=== PATIENT | male | born 1975 | race Two or more races ===

== ENCOUNTER 2017-02-12 18:48 | Emergency (ER) | payer SELFPAY ==
[~2017-02-12] VITALS: Ht 162.6 cm; Wt 68.0 kg
[2017-02-12 19:30] VITALS: BP 123/81
[2017-02-12] MEDS ORDERED: Lidocaine 2% Visc 15ml soln ORAL ONE (19:30)
[2017-02-12] MEDS ORDERED: Mylanta II UD 30ml ORAL ONE (19:30)
[2017-02-12] MEDS ORDERED: Dicyclomine HCl 10mg/5ml oral soln ORAL ONE (19:30)
--- NOTE | 2017-02-12 19:51 | Emergency Room Report ---
History of Present Illness General Chief Complaint: Chest Pain Source: Patient Present Illness Allergies: Coded Allergies: No Known Allergies (Unverified , 02/12/17) Patient History Past Medical History: see triage record Past Surgical History: none Pertinent Family History: none Reviewed Nursing Documentation: PMH: Agreed, PSxH: Agreed Nursing Documentation-PMH Past Medical History: No Stated History Physical Exam Vital Signs Date Time Temp Pulse Resp B/P (MAP) Pulse Ox O2 Delivery O2 Flow Rate FiO2 02/12/17 18:52 98.1 74 18 123/81 97 Room Air Medical Decision Making Diagnostic Impression: Primary Impression: Chest pain ER Course 42-year-old male presenting with epigastric pain and chest pain for one week DDX: Gastritis versus ACS vs. CHF vs. pneumonia vs.vs. pneumothorax At this time patient appears very well, nontoxic, has some epigastric tenderness , unlikely to have ACS Plan: IV access, obtain labs including troponin, EKG, CXR ASA, Pepcid, GI cocktail, IV fluids ER course: Labs: troponin negative Patient was treated with Pepcid, GI cocktail. Patient given ASA. Patient feels much better Patient remained chest pain free during ED stay. Appears nontoxic repeat abd exam benign Disposition: *HEART score = 0-3pts indicated low risk for major acute cardiac event. Patient will be discharged to home. Strict precautions discussed with patient on when to emergently return to the ED : this includes worsening/severe chest pain, palpitations, shortness of breath, syncopal episodes, fever or chills, which may indicate severe illness. Patient verbalized understanding. Patient instructed to follow up with their PMD within the next 2 days. Patient also instructed to follow up with a fruit thinner within 2 days for possible outpatient stress test. Patient agrees with plan. Please note that this Emergency Department Report was dictated using [employer] school teacher librarian technology software, occasionally this can lead to erroneous entry secondary to interpretation by the dictation equipment. EKG Diagnostic Results EP Interpretation: Yes Rate: normal Rhythm: NSR ST Segments: No acute changes ASA given to patient: Yes Rhythm Strip EP Interpretation: Yes Rate: 70 Rhythm: NSR, no PVCs, no ectopy Chest X-ray CXR: Ordered: Yes 1 view Indication: Chest pain EP interpretation: Yes Interpretation: No consolidation, no effusion, no PTX, no acute cardiopulmonary disease Impression: No acute disease Electronically signed by Deejay Feldman MD Laboratory Tests Test 02/12/17 19:05 White Blood Count 9.0 K/UL (4.8-10.8) Red Blood Count 5.02 M/UL (4.70-6.10) Hemoglobin 15.7 G/DL (14.2-18.0) Hematocrit 47.2 % (42.0-52.0) Mean Corpuscular Volume 94 FL (80-99) Mean Corpuscular Hemoglobin 31.2 PG (27.0-31.0) H Mean Corpuscular Hemoglobin Concent 33.2 G/DL (32.0-36.0) Red Cell Distribution Width 11.6 % (11.6-14.8) Platelet Count 262 K/UL (150-450) Mean Platelet Volume 6.7 FL (6.5-10.1) Neutrophils (%) (Auto) 56.3 % (45.0-75.0) Lymphocytes (%) (Auto) 34.4 % (20.0-45.0) Monocytes (%) (Auto) 8.0 % (1.0-10.0) Eosinophils (%) (Auto) 0.7 % (0.0-3.0) Basophils (%) (Auto) 0.6 % (0.0-2.0) Urine Color Yellow Urine Appearance Clear Urine pH 6 (4.5-8.0) Urine Specific [place] 1.020 (1.005-1.035) Urine Protein Negative (NEGATIVE) Urine Glucose (UA) Negative (NEGATIVE) Urine Ketones Negative (NEGATIVE) Urine Occult Blood Negative (NEGATIVE) Urine Nitrite Negative (NEGATIVE) Urine Bilirubin Negative (NEGATIVE) Urine Urobilinogen Normal MG/DL (0.0-1.0) Urine Leukocyte Esterase Negative (NEGATIVE) Sodium Level 139 MMOL/L (136-145) Potassium Level 3.6 MMOL/L (3.5-5.1) Chloride Level 103 MMOL/L (98-107) Carbon Dioxide Level 30 MMOL/L (21-32) Anion Gap 6 mmol/L (5-15) Blood Urea Nitrogen 12 mg/dL (7-18) Creatinine 0.8 MG/DL (0.55-1.30) Estimate Glomerular Filtration Rate > 60 mL/min (>60) Glucose Level 92 MG/DL (74-106) Calcium Level 8.8 MG/DL (8.5-10.1) Total Bilirubin 0.4 MG/DL (0.2-1.0) Aspartate Amino Transferase (AST) 21 U/L (15-37) Alanine Aminotransferase (ALT) 31 U/L (12-78) Alkaline Phosphatase 100 U/L (46-116) Troponin I 0.004 ng/mL (0.000-0.056) Pro-B-Type Natriuretic Peptide 7 pg/mL (0-125) Total Protein 7.2 G/DL (6.4-8.2) Albumin 3.9 G/DL (3.4-5.0) Globulin 3.3 g/dL Albumin/Globulin Ratio 1.2 (1.0-2.7) Urine Opiates Screen Negative (NEGATIVE) Urine Barbiturates Screen Negative (NEGATIVE) Phencyclidine (PCP) Screen Negative (NEGATIVE) Urine Amphetamines Screen Negative (NEGATIVE) Urine Benzodiazepines Screen Negative (NEGATIVE) Urine Cocaine Screen Negative (NEGATIVE) Urine Marijuana (THC) Screen Negative (NEGATIVE) Last Vital Signs Date Time Temp Pulse Resp B/P (MAP) Pulse Ox O2 Delivery O2 Flow Rate FiO2 02/12/17 18:52 98.1 74 18 123/81 97 Room Air Disposition: HOME, SELF-CARE Condition: Improved Scripts Famotidine (PEPCID) 40 Mg Tablet 40 MG PO DAILY for 14 Days, #14 TAB 0 Refills Prov: Deejay Feldman M.D. 02/12/17 Patient Instructions: Nonspecific Chest Pain Deejay Feldman M.D. Feb 12, 2017 19:51
[2017-02-12 19:53] LABS: BASOPHILS % (AUTO) 0.6 % (0.0-2.0); EOSINOPHILS % (AUTO) 0.7 % (0.0-3.0); LYMPHOCYTES % (AUTO) 34.4 % (20.0-45.0); MEAN CORPUSCULAR HEMOGLOBIN 31.2 PG (27.0-31.0); MEAN CORPUSCULAR HGB CONC 33.2 G/DL (32.0-36.0); MEAN CORPUSCULAR VOLUME 94 FL (80-99); MEAN PLATELET VOLUME 6.7 FL (6.5-10.1); NEUTROPHILS % (AUTO) 56.3 % (45.0-75.0); PLATELET COUNT 262 K/UL (150-450); RED BLOOD COUNT 5.02 M/UL (4.70-6.10); RED CELL DISTRIBUTION WIDTH 11.6 % (11.6-14.8)
[2017-02-12 19:54] LABS: APPEARANCE,URINE CLEAR; KETONES,URINE NEGATIVE (NEGATIVE); LEUKOCYTE ESTERASE ,URINE NEGATIVE (NEGATIVE); NITRITE,URINE NEGATIVE (NEGATIVE); PH,URINE 6 (4.5-8.0); PROTEIN,URINE NEGATIVE (NEGATIVE); UROBILINOGEN,URINE NORMAL MG/DL (0.0-1.0)
[2017-02-12 20:04] LABS: ANION GAP 6 mmol/L (5-15); CALCIUM 8.8 MG/DL (8.5-10.1); CARBON DIOXIDE 30 MMOL/L (21-32); CHLORIDE 103 MMOL/L (98-107); CREATININE 0.8 MG/DL (0.55-1.30); GLOMERULAR FILTRATION RATE > 60 mL/min (>60); POTASSIUM 3.6 MMOL/L (3.5-5.1); SODIUM 139 MMOL/L (136-145)
[2017-02-12] MEDS ORDERED: PEPCID40 MG PO (20:11)
[2017-02-12 20:14] LABS: ALANINE AMINOTRANSFERASE 31 U/L (12-78); ALBUMIN/GLOBULIN RATIO 1.2 (1.0-2.7); ASPARTATE AMINO TRANSFERASE 21 U/L (15-37); TOTAL PROTEIN 7.2 G/DL (6.4-8.2)
[2017-02-12 20:25] VITALS: BP 123/81
--- NOTE | 2017-02-13 10:29 | Diagnostic Imaging Report ---
Indication: PAIN Technique: One view of the chest Comparison: none Findings: Lungs and pleural spaces are clear. Heart size is normal. Impression: No acute process
--- NOTE | 2017-02-15 16:22 | Cardiology Report ---
APPROVED REPORT EKG Measurement Heart [id number] Normal sinus rhythm Normal ECG
--- NOTE | 2017-03-01 13:34 | Emergency Room Report ---
History of Present Illness General Chief Complaint: Chest Pain Source: Patient Present Illness HPI 42-year-old male with no sig pmhx p/w abdominal pain for one week. Patient states pain started gradually, localized to epigastric area and radiates up towards chest, burning in nature, intermittent. No relieving or exacerbating factors. Denies nvd. Denies fever, chills. No hx of abdominal surgeries. No hx of endoscopies/colonoscopies. No shortness of breath no palpitations Allergies: Coded Allergies: No Known Allergies (Unverified , 02/12/17) Patient History Past Medical History: see triage record Past Surgical History: none Pertinent Family History: none Reviewed Nursing Documentation: PMH: Agreed, PSxH: Agreed Nursing Documentation-PMH Past Medical History: No Stated History Review of Systems All Other Systems: negative except mentioned in HPI Physical Exam Vital Signs Date Time Temp Pulse Resp B/P (MAP) Pulse Ox O2 Delivery O2 Flow Rate FiO2 02/12/17 18:52 98.1 74 18 123/81 97 Room Air Sp02 EP Interpretation: reviewed, normal General Appearance: normal inspection, well appearing, no apparent distress, alert, GCS 15, non-toxic Head: normocephalic, atraumatic Eyes: bilateral eye normal inspection, bilateral eye PERRL, bilateral eye EOMI ENT: normal ENT inspection, normal pharynx, normal voice, moist mucus membranes Neck: normal inspection, full range of motion, supple Respiratory: normal inspection, lungs clear, normal breath sounds, no respiratory distress, no retraction, no wheezing, speaking full sentences, chest symmetrical Cardiovascular #1: normal inspection, regular rate, rhythm, no edema, normal capillary refill Cardiovascular #2: 2+ radial (R), 2+ radial (L) Gastrointestinal: normal inspection, non tender, soft, non-distended, no guarding Genitourinary: no CVA tenderness Musculoskeletal: normal inspection, back normal, normal range of motion, non- tender Neurologic: normal inspection, alert, oriented x3, responsive, motor strength/ tone normal, sensory intact, normal gait, speech normal Psychiatric: normal inspection, judgement/insight normal, memory normal Skin: normal inspection, normal color, no rash, warm/dry, well hydrated, normal turgor Medical Decision Making Diagnostic Impression: Primary Impression: Chest pain Last Vital Signs Date Time Temp Pulse Resp B/P (MAP) Pulse Ox O2 Delivery O2 Flow Rate FiO2 02/12/17 20:25 98.1 88 18 123/81 97 Room Air Disposition: HOME, SELF-CARE Condition: Improved Scripts Famotidine (PEPCID) 40 Mg Tablet 40 MG PO DAILY for 14 Days, #14 TAB 0 Refills Prov: Deejay Feldman M.D. 02/12/17 Referrals: NOT CHOSEN IPA/,REFERRING (PCP) Patient Instructions: Nonspecific Chest Pain, Heartburn Deejay Feldman M.D. Mar 01, 2017 13:34
== END 2017-02-12 20:25 | disposition home or self-care (01) ==
LOC: EMR 19:21
DX: R07.9 Chest pain, unspecified (principal); R10.13 Epigastric pain
CPT/HCPCS: 36415; 71010; 80053; 80307; 81003; 83880; 84484; 85025; 93005; 96360; 99284; S0028